=== PATIENT | female | born 1985 | race Caucasian/White ===

== ENCOUNTER 2018-05-04 05:40 | Inpatient (IN) | payer OTHER ==
[2018-05-04] MEDS ORDERED: IPRATROPIUM/ALBUTEROL 3 ML DEYVIAL ONE (05:55)
[2018-05-04] MEDS ORDERED: IPRATROPIUM/ALBUTEROL 3 ML DEYVIAL IH ONE ×2 (05:55→06:43)
[2018-05-04 06:16] LABS: PLATELET COUNT 386 10^3/uL (150-400)
[2018-05-04 06:29] LABS: INR 0.97 (0.83-1.16); PROTIME(PATIENT) 13.1 SEC (12.0-15.0)
[2018-05-04] MEDS ORDERED: IOHEXOL 350mgI/ML (OMNIPAQUE) 150 ML BTL IV ONE (06:57)
--- NOTE | 2018-05-04 07:17 | EDPHY ---
H & P Stated Complaint: breathing difficulty, cough - Personal History LMP (Females 10-55): 8-14 Days Ago Current Tetanus Diphtheria and Acellular Pertussis (TDAP): Yes - Medical/Surgical History Hx Asthma: No Hx Chronic Respiratory Disease: No Hx Diabetes: No Hx Cardiac Disease: No Hx Renal Disease: No Hx Cirrhosis: No Hx Alcoholism: No Hx HIV/AIDS: No Hx Splenectomy or Spleen Trauma: No - Social History Smoking Status: Never smoked Time Seen by Provider: 05/04/18 05:50 HPI/ROS: Chief Complaint: Difficulty breathing HPI: Healthy 32-year-old woman with no past medical history presenting with several days of worsening difficulty breathing. Patient has had viral URI type symptoms for the past week and over the last 3-4 days symptoms have been getting significantly worse. She is feeling like she cannot catch a full breath. No pain with inspiration. Some subjective fevers and chills at home. She has a dry nonproductive cough. No nausea or vomiting. No abdominal pain. No recent travel. No leg pain or swelling. No falls or injuries. No family history of coronary artery disease or thromboembolic disease. ROS: 10 systems were reviewed and were negative except those elements noted in the HPI. PMH: Denies Social History: No smoking, occasional alcohol, no recreational drug use Family History: non-contributory Physical Exam: Gen: Awake, Alert, appears in significant distress, hypoxemic, tachycardic HEENT: Nose: no rhinorrhea Eyes: PERRLA, EOMI Mouth: Moist mucosa Neck: Supple, no JVD Chest: nontender, decrease lung sounds diffusely, no focal rales or rhonchi Heart: S1, S2 normal, no murmur Abd: Soft, non-tender, no guarding Back: no CVA tenderness, no midline tenderness Ext: no edema, non-tender Skin: no rash Neuro: CN II-XII intact, Sensation grossly intact, Strength 5/5 in bilateral upper and lower extremities (Maynor Cowan) Constitutional: Initial Vital Signs Temperature (C) 37 C 05/04/18 05:43 Heart Rate 135 H 05/04/18 05:43 Blood Pressure 155/95 H 05/04/18 05:43 O2 Sat (%) 85 L 05/04/18 05:43 O2 Delivery Mode Room Air Allergies/Adverse Reactions: amoxicillin Allergy (Verified 05/04/18 08:19) Other-Enter Comments Home Medications: Medication Instructions Recorded Herbals/Supplements -Info Only 1 ea PO DAILY 05/04/18 Ibuprofen [Motrin (*)] 200 mg PO QID PRN 05/04/18 Norelgestromin/Ethin.estradiol 1 each TD AD 05/04/18 [Xulane Patch] Pseudoephedrine HCl [Sudafed] 30 mg PO BID PRN 05/04/18 Medical Decision Making - Diagnostics Imaging Results: Imaging Impressions Chest X-Ray 05/04/18 05:54 Impression: Mild cardiac silhouette enlargement with peribronchial thickening and bibasilar interstitial opacities suggests bronchitis or an atypical pneumonitis, although a component of low-grade CHF is not excluded. Clinical correlation and follow-up are suggested. Chest/Thorax CTA 05/04/18 06:53 Impression: 1. Suboptimal position of the pulmonary arterial system. No central pulmonary embolus. 2. Reticulation and groundglass opacities within the lung, likely representing an element of interstitial lung disease, such as pneumonitis, fibrosis, or pneumonia. Preliminary report provided by [facility] at 7:26 AM. Chest x-ray shows some mild diffuse bilateral lower patchy infiltrates per my interpretation. (Maynor Cowan) Imaging Impressions Chest X-Ray 05/04/18 05:54 Impression: Mild cardiac silhouette enlargement with peribronchial thickening and bibasilar interstitial opacities suggests bronchitis or an atypical pneumonitis, although a component of low-grade CHF is not excluded. Clinical correlation and follow-up are suggested. Chest/Thorax CTA 05/04/18 06:53 Impression: 1. Suboptimal position of the pulmonary arterial system. No central pulmonary embolus. 2. Reticulation and groundglass opacities within the lung, likely representing an element of interstitial lung disease, such as pneumonitis, fibrosis, or pneumonia. Preliminary report provided by [facility] at 7:[address] angiogram reviewed by me and discussed with Radiology shows no evidence for pulmonary embolus (Jesse Orozco) ED Course/Re-evaluation: 32-year-old woman with respiratory distress, hypoxemia and tachycardia. Will obtain laboratory evaluations, chest x-ray, DuoNeb treatment, reassess. Patient's white count is noted to be elevated to 20. She meets SIRS criteria. I have ordered the appropriate cultures and testing. Lactic acid has been ordered as well. D-dimer is elevated. Patient is improved after DuoNeb. CT scan of the chest has been ordered. Patient signed out to Dr. Orozco pending CT results of the CT scan, lactic acid and clinical re-evaluation. Patient is awaiting results from her influenza and respiratory pathogen panel. (Maynor Cowan) I saw the patient at 7:10 a.m.. She is stable. She speaks conversational but she appears somewhat breathless. She is just return from CT. We are awaiting results. Current heart rate about 110 appears to be sinus tach. 95% O2 saturation room air Patient and I have discussed imaging results, treatment plan including recommendation for admission. She expresses understanding and agreement I consulted discussed the case with hospitalist, who agrees to the admission and sees the patient in the emergency department (Jesse Orozco) Differential Diagnosis: This appears to be pneumonitis secondary to influenza. No evidence for pulmonary embolus (Jesse Orozco) - Data Points Laboratory Results: Laboratory Results 05/04/18 06:05 05/04/18 06:05 05/04/18 05/04/18 05/04/18 07:00 06:55 06:05 WBC RBC Hgb Hct MCV MCH MCHC RDW Plt Count MPV Neut % (Auto) Lymph % (Auto) Lamb % (Auto) Eos % (Auto) Baso % (Auto) Nucleat RBC Rel Count Absolute Neuts (auto) Absolute Lymphs (auto) Absolute Monos (auto) Absolute Eos (auto) Absolute Basos (auto) Absolute Nucleated RBC Immature Gran % Immature Gran # PT INR APTT D-Dimer VBG Lactic Acid 1.4 mmol/L mmol/L (0.7-2.1) Sodium Potassium Chloride Carbon Dioxide Anion Gap BUN Creatinine Estimated GFR Glucose Calcium Total Bilirubin Beta HCG, Qual NEGATIVE Urine Color PALE YELLOW Urine Appearance CLEAR Urine pH 6.0 (5.0-7.5) Ur Specific [place] 1.003 (1.002-1.030) Urine Protein NEGATIVE (NEGATIVE) Urine Ketones NEGATIVE (NEGATIVE) Urine Blood NEGATIVE (NEGATIVE) Urine Nitrate NEGATIVE (NEGATIVE) Urine Bilirubin NEGATIVE (NEGATIVE) Urine Urobilinogen NEGATIVE EU EU (0.2-1.0) Ur Leukocyte Esterase NEGATIVE (NEGATIVE) Urine Glucose NEGATIVE (NEGATIVE) Nasal Influenza A PCR Nasal Influenza B PCR 0205/04/18 05/04/18 06:05 06:05 06:05 WBC 20.81 10^3/uL H 10^3/uL (3.80-9.50) RBC 4.64 10^6/uL 10^6/uL (4.18-5.33) Hgb 14.0 g/dL g/dL (12.6-16.3) Hct 41.3 % % (38.0-47.0) MCV 89.0 fL fL (81.5-99.8) MCH 30.2 pg pg (27.9-34.1) MCHC 33.9 g/dL g/dL (32.4-36.7) RDW 12.9 % % (11.5-15.2) Plt Count 386 10^3/uL 10^3/uL (150-400) MPV 10.6 fL fL (8.7-11.7) Neut % (Auto) 89.3 % H % (39.3-74.2) Lymph % (Auto) 7.1 % L % (15.0-45.0) Lamb % (Auto) 2.6 % L % (4.5-13.0) Eos % (Auto) 0.1 % L % (0.6-7.6) Baso % (Auto) 0.4 % % (0.3-1.7) Nucleat RBC Rel Count 0.0 % % (0.0-0.2) Absolute Neuts (auto) 18.57 10^3/uL H 10^3/uL (1.70-6.50) Absolute Lymphs (auto) 1.47 10^3/uL 10^3/uL (1.00-3.00) Absolute Monos (auto) 0.55 10^3/uL 10^3/uL (0.30-0.80) Absolute Eos (auto) 0.03 10^3/uL 10^3/uL (0.03-0.40) Absolute Basos (auto) 0.08 10^3/uL 10^3/uL (0.02-0.10) Absolute Nucleated RBC 0.00 10^3/uL 10^3/uL (0-0.01) Immature Gran % 0.5 % % (0.0-1.1) Immature Gran # 0.11 10^3/uL H 10^3/uL (0.00-0.10) PT 13.1 SEC SEC (12.0-15.0) INR 0.97 (0.83-1.16) APTT 23.6 SEC SEC (23.0-38.0) D-Dimer 0.57 ug/mLFEU H ug/mLFEU (0.00-0.50) VBG Lactic Acid Sodium 138 mEq/L mEq/L (135-145) Potassium 4.5 mEq/L mEq/L (3.5-5.2) Chloride 108 mEq/L mEq/L (97-110) Carbon Dioxide 21 mEq/l L mEq/l (22-31) Anion Gap 9 mEq/L mEq/L (6-14) BUN 10 mg/dL mg/dL (7-23) Creatinine 0.9 mg/dL mg/dL (0.6-1.0) Estimated GFR > 60 Glucose 111 mg/dL H mg/dL (70-100) Calcium 9.6 mg/dL mg/dL (8.5-10.4) Total Bilirubin 0.4 mg/dL mg/dL (0.1-1.4) Beta HCG, Qual Urine Color Urine Appearance Urine pH Ur Specific [place] Urine Protein Urine Ketones Urine Blood Urine Nitrate Urine Bilirubin Urine Urobilinogen Ur Leukocyte Esterase Urine Glucose Nasal Influenza A PCR Nasal Influenza B PCR 05/04/18 06:05 WBC RBC Hgb Hct MCV MCH MCHC RDW Plt Count MPV Neut % (Auto) Lymph % (Auto) Lamb % (Auto) Eos % (Auto) Baso % (Auto) Nucleat RBC Rel Count Absolute Neuts (auto) Absolute Lymphs (auto) Absolute Monos (auto) Absolute Eos (auto) Absolute Basos (auto) Absolute Nucleated RBC Immature Gran % Immature Gran # PT INR APTT D-Dimer VBG Lactic Acid Sodium Potassium Chloride Carbon Dioxide Anion Gap BUN Creatinine Estimated GFR Glucose Calcium Total Bilirubin Beta HCG, Qual Urine Color Urine Appearance Urine pH Ur Specific [place] Urine Protein Urine Ketones Urine Blood Urine Nitrate Urine Bilirubin Urine Urobilinogen Ur Leukocyte Esterase Urine Glucose Nasal Influenza A PCR Cancelled Nasal Influenza B PCR Cancelled Microbiology Results: MICROBIOLOGY 05/04/18 06:00 Nasal, Sinus - Swab Respiratory Panel (PCR) - Final No Organism Detected By Pcr Medications Given: Discontinued Medications Albuterol/Ipratropium (Duoneb) 3 ml IH EDNOW ONE Stop: 05/04/18 05:56 Last Admin: 05/04/18 05:57 Dose: 3 ml Albuterol/Ipratropium (Duoneb) 3 ml IH EDNOW ONE Stop: 05/04/18 06:44 Last Admin: 05/04/18 06:43 Dose: 3 ml Sodium Chloride (Ns) 1,000 mls @ 0 mls/hr IV EDNOW ONE; Wide Open PRN Reason: Protocol Stop: 05/04/18 07:21 Last Admin: 05/04/18 07:26 Dose: 1,000 mls Departure - Departure Disposition: [facility] Inpatient Acute Clinical Impression: Pneumonia Qualifiers: Pneumonia type: due to unspecified organism Laterality: bilateral Lung location : lower lobe of lung Qualified Code(s): J18.1 - Lobar pneumonia, unspecified organism Condition: Fair
[2018-05-04] MEDS ORDERED: NS 1,000 ML IV ONE (07:20)
[2018-05-04] MEDS ORDERED: ZOLPIDEM TARTRATE 5 MG TAB PO PRN (08:56)
[2018-05-04] MEDS ORDERED: ONDANSETRON 4 MG/2 ML VIAL IVP PRN (08:56)
[2018-05-04] MEDS ORDERED: NS 500 ML IV ONE (08:56)
[2018-05-04] MEDS ORDERED: ACETAMINOPHEN 325 MG TAB PO PRN (08:56)
[2018-05-04] MEDS ORDERED: NORELGESTROMIN TD SCH (09:00)
[2018-05-04] MEDS ORDERED: ETHIN ESTRADIOL TD SCH (09:00)
--- NOTE | 2018-05-04 09:07 | PDGENHP ---
History and Physical History and Physical: CC: Cough and shortness of breath HISTORY: 1 week of cough and congestion has been present and the patient now developing worsening shortness of breath for the last 3-4 days. There have been chills and rigors at home. The cough is nonproductive with no hematemesis. She has not have any previous history of lung disease or respiratory illness of concern. NO chest pain. No nausea or emesis, mild headache Her roommate had a cold recently. 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 I have reviewed the list and ordered appropriate medicines. PHYSICAL EXAMINATION: Vital Signs: Initial pulse 135, initial respiratory rate 28, 85% oxygen saturation initially on room air, highest temperature in the ER so far 37.4 Avionics Engineer: Sinus Examination: General: alert, oriented, good mentation, relaxed Skin: warm, dry, good color, no rash HEENT: normal Neck: no mass or jvd Resps: relaxed Lungs: clear breath sounds Heart: regular, no murmur Abdomen: soft, nondistended, nontender, +BS, no mass Upper Extremities: normal Lower Extremities: no edema, warm No Bleeding or bruising Neurologic: normal speech/language, normal rounder hand, no focal weakness IV site: looks normal LABORATORY DATA: White blood cell count elevated 20,000 with predominance in neutrophils Normal platelets and hemoglobin Normal coagulation studies with exception of D-dimer elevated 0.5 RADIOLOGY STUDIES: I reviewed images from CT scan of chest and x-ray both done in the ER this morning. The patient has left lower lobe pneumonia without effusion. No pulmonary emboli or visible although the contrast has passed more pulmonary venous and systemic arterial system and is suboptimal in the pulmonary arteries. ASSESSMENT: * Acute sepsis tachycardia tachypnea hypoxemia fever high white blood cell count and pneumonia * Community-acquired pneumonia * Hypoxemic respiratory failure, acute * CO2 slightly low at 21 but normal anion gap, otherwise unremarkable Chem panel * Negative test * Unremarkable UA PLANS: * Ongoing fluid resuscitation follow vital signs and other sepsis signs very closely * I have ordered antibiotics to start now in the ER which have not previous been given * Only a single blood culture has been obtained apparently so far; I have asked ER nurse to get another blood culture now before abx * otherwise symptomatic therapies I have reviewed the patient's case in detail with Dr. Orozco I have reviewed the patient's past medical records as part of this assessment, including outpatient clinic records including laboratory data
[2018-05-04] MEDS ORDERED: levOFLOXACIN 750 MG/DEXTROSE/150 ML BAG IV ONE (09:25)
[2018-05-04] MEDS: ENOXAPARIN 40 MG/0.4 ML SYR SC SCH (10:22)
--- NOTE | 2018-05-04 13:40 | PDMN ---
Medical Necessity Medical necessity: [facility] M160 Sepsis, A-3 days: 32 yo w/ URI s/sx in acute sepsis 2nd CAP, meets IP status med nec for ongoing care with hemodynamic instability ( tachy 130s), tachynpnea (RR 28) and hypoxemia (85% ra) requiring O2. IVF and IV antibx started. Anticipate>2MN for ongoing monitoring and tx of the above.
[2018-05-04] MEDS: NS 1,000 ML IV SCH ×2 (14:35→20:54)
[2018-05-04] MEDS: MELATONIN 3 MG TAB PO SCH (20:47)
[2018-05-05 07:21] LABS: PLATELET COUNT 352 10^3/uL (150-400)
[2018-05-05] MEDS: ENOXAPARIN 40 MG/0.4 ML SYR SC SCH (08:41)
--- NOTE | 2018-05-05 09:46 | ASMTCMCOM ---
CM Note CM Note Notes: Patient admitted for cough and SOB greater than one week duration. She's being treated for community acquired PNA. She is normally independent. 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 Lives w roomate. No d/c needs anticipated. Date Signed: 05/05/2018 09:46 AM Electronically Signed By:Erica Agrawal RN
[2018-05-05] MEDS ORDERED: methylPREDNISolone SOD SUCC 125 MG/2 ML VIAL IVP ONE (10:20)
[2018-05-05] MEDS: ALBUTEROL 3 ML DEYVIAL IH SCH ×4 (10:43→20:27)
[2018-05-05] MEDS ORDERED: LORazepam 0.5 MG TAB PO ONE (13:34)
--- NOTE | 2018-05-05 13:40 | HOSPPROG ---
Hospitalist Progress Note Assessment/Plan: 32 yo female admitted with CAP Called to bedside urgently as the pt's breathing rate in high 40's CXR does not show volume overload. Does show pneumonia Resp panel negative no hx of Asthma/COPD BNP not high CTA on admission showed no P.E #Acute Hypoxic Respiratory Failure #Tachypnea #CAP #Reactive Airway disease with exacerbation #Anxiety disorder, reports recent evaluation for this by her PCP during which she filled out a form and need f/u for results #Leukocytosis, resolving Plan: Stat CXR was ordered and read Stat SoluMedrol given. Will schedule Schedule Nebs, first now cont Levaquin Stop IVF, voiding well. no signs of dehydration at this time If persists, will obtain ABG Doubt P.E. with negative imaging on admission, exam consistent with obstruct vs reactive lung disease, and has been on prophylactic dose of Lovenox total critical care time in the mgmt of this pt with acute resp failure is 40 minutes Subjective: feels sob. denies cp. increased work of breathing. Objective: Vital Signs Temp Pulse Resp BP Pulse Ox 36.7 C 101 H 40 H 127/85 H 94 05/05/18 12:00 05/05/18 12:00 05/05/18 12:00 05/05/18 12:00 05/05/18 12:00 Laboratory Results 05/05/18 06:25 05/05/18 06:25 05/04/18 05/05/18 05/06/18 05:59 05:59 05:59 Intake Total 2300 Output Total 900 Balance 2300 -900 PT 13.1 SEC (12.0-15.0) 05/04/18 06:05 INR 0.97 (0.83-1.16) 05/04/18 06:05 - Physical Exam Constitutional: no apparent distress Eyes: PERRL, EOMI Ears, Nose, Mouth, Throat: moist mucous membranes Cardiovascular: regular rate and rhythym, tachycardia Respiratory: reduced air movement, expiratory wheeze, respiratory distress ( tachypnea) Gastrointestinal: normoactive bowel sounds Skin: warm Neurologic: AAOx3 Psychiatric: interacting appropriately, not anxious, not encephalopathic Lymph, Heme, Immunologic: No petechiae ICD10 Worksheet Patient Problems: Problems Problem Status Onset Pneumonia Acute
[2018-05-05] MEDS: methylPREDNISolone SOD SUCC 125 MG/2 ML VIAL IVP SCH ×2 (14:21→22:11)
[2018-05-05] MEDS: MELATONIN 3 MG TAB PO SCH (23:35)
[2018-05-06] MEDS: methylPREDNISolone SOD SUCC 125 MG/2 ML VIAL IVP SCH ×2 (05:24→14:05)
[2018-05-06] MEDS: ALBUTEROL 3 ML DEYVIAL IH SCH ×4 (05:51→19:57)
[2018-05-06] MEDS: ENOXAPARIN 40 MG/0.4 ML SYR SC SCH (09:18)
[2018-05-06] MEDS ORDERED: BENZONATATE 100 MG CAP PO PRN (15:28)
--- NOTE | 2018-05-06 15:33 | HOSPPROG ---
Hospitalist Progress Note Assessment/Plan: 32 yo female admitted with CAP CXR does not show volume overload. Does show pneumonia Resp panel negative no hx of Asthma/COPD BNP not high CTA on admission showed no P.E #Acute Hypoxic Respiratory Failure #Tachypnea #CAP #Reactive Airway disease with exacerbation #Anxiety disorder, reports recent evaluation for this by her PCP during which she filled out a form and need f/u for results #Leukocytosis, resolving Plan: Much improved today stop IV steroids, start Prednisone cont nebs cont Levaquin, change to PO can hopefully wean off O2 tomorrow and discharge d/w pt and parents Subjective: feels better. Still on 3 liters. no further resp distress Objective: Vital Signs Temp Pulse Resp BP Pulse Ox 37.1 C 114 H 20 130/78 H 93 05/06/18 11:54 05/06/18 11:54 05/06/18 11:54 05/06/18 11:54 05/06/18 11:54 Laboratory Results 05/05/18 06:25 05/05/18 06:25 05/05/18 05/06/18 05/07/18 05:59 05:59 05:59 Intake Total 2300 2850 500 Output Total 2152 800 Balance 2300 698 -300 PT 13.1 SEC (12.0-15.0) 05/04/18 06:05 INR 0.97 (0.83-1.16) 05/04/18 06:05 - Physical Exam Constitutional: no apparent distress Eyes: PERRL, EOMI Ears, Nose, Mouth, Throat: moist mucous membranes, hearing normal Cardiovascular: regular rate and rhythym, No edema Respiratory: no respiratory distress, no rales or rhonchi, reduced air movement , expiratory wheeze Gastrointestinal: normoactive bowel sounds, soft, non-tender abdomen Skin: warm Neurologic: AAOx3 Psychiatric: interacting appropriately, not anxious, not encephalopathic Lymph, Heme, Immunologic: No petechiae ICD10 Worksheet Patient Problems: Problems Problem Status Onset Pneumonia Acute
[2018-05-06] MEDS: guaiFENesin 600 MG TAB.ER PO SCH (20:26)
[2018-05-06] MEDS: MELATONIN 3 MG TAB PO SCH (22:39)
[2018-05-07] MEDS: ALBUTEROL 3 ML DEYVIAL IH SCH ×2 (06:04→10:45)
[2018-05-07] MEDS: ENOXAPARIN 40 MG/0.4 ML SYR SC SCH (08:36)
[2018-05-07] MEDS: guaiFENesin 600 MG TAB.ER PO SCH (08:36)
[2018-05-07] MEDS ORDERED: predniSONE 20 MG TAB PO SCH (09:00)
--- NOTE | 2018-05-07 10:04 | PDDCSUM ---
Discharge Summary Discharge Summary: Dates of service 05/04-05/07/2018 Consultations: Procedures: Hospital course by problem: 32 yo female admitted with CAP # CAP: significantly improved on levofloxacin, will dc on oral to complete 7 day course, cultures and resp PCR negative # acute hypoxic respiratory failure: with CTA and CXR c/w pna without other etiology, no PE. Has been doing well on RA for last 24 hours. # RAD with acute exacerbation: without prior hx of asthma or COPD and presumably post viral RAD, improved with nebs. Discharged home with albuterol inhaler, completed 3 days of steroids and will dc given resolution of wheeze # leukocytosis: due to infection as above and improved # anxiety: being worked up by PCP DC home f/u with PCP Items fo follow up: consider OP pulmonary function testing once recovered from this illness > 35 min spent in dc more than half in coordination of care and counseling regarding post discharge plans
[2018-05-07 12:13] VITALS: BP 129/77
--- NOTE | 2018-05-07 13:52 | ASMTLACE ---
ARETHAE Length of stay for Answers: 4-6 days current admission Acuity / Level of Answers: Yes Care: Did the patient have an inpatient admission? # of Emergency department Answers: 1-2 visits in the last 6 months Score: 8 Date Signed: 05/07/2018 01:52 PM Electronically Signed By:AMNEA Burns
--- NOTE | 2018-05-07 13:53 | ASMTCMCOM ---
CM Note CM Note Notes: Pt medically stable for d/c, no CM d/c needs identified. Date Signed: 05/07/2018 01:52 PM Electronically Signed By:AMENA Burns
--- NOTE | 2018-05-11 11:12 | PQFORM ---
PHYSICIAN QUERY FORM Needs Your Response This query form is being sent to you to assure this patient record is coded properly. Please respond to the question below: JUDO INSTRUCTOR QUESTION: Dr Lopez Sepsis was mentioned in this patients chart but was not listed on the discharge summary. I do not see where it was 'ruled out'. Please clarify if this patient had Sepsis. x __ Yes my note should have said sepsis resolved, I can edit it __ No __ Other (Please Specify ) __ Undetermined Thank You Shanika TRUJILLO Mud Cleaner Operator INSTRUCTIONS FOR RESPONSE: Answer question by clicking on the "Edit Document" button. Move cursor to area below the stars. When complete, hit "Save." Click on the "Sign" button, then click "Sign" again. Type in your PIN and hit "Enter." MTDD
== END 2018-05-07 12:37 | disposition home or self-care (01) | DRG 871 ==
LOC: F1N 13:33
PROVIDERS: ADMIT Internal Medicine; ATTEND Internal Medicine
DX: A41.9 Sepsis, unspecified organism (principal); J18.9 Pneumonia, unspecified organism; J96.21 Acute and chronic respiratory failure with hypoxia; J45.901 Unspecified asthma with (acute) exacerbation; D72.829 Elevated white blood cell count, unspecified
CPT/HCPCS: 96365; 96366; J1650; J1956; J2930; J7512; J7613; Q9967

== ENCOUNTER → 2018-05-13 | Outpatient (CLI) | payer OTHER | LOC: FIMAGING 10:39 ==

== ENCOUNTER 2018-05-14 11:26 | Observation (INO) | payer OTHER ==
--- NOTE | 2018-05-14 11:39 | EDPHY ---
H & P Stated Complaint: pna/SOB/cough/tachy Time Seen by Provider: 05/14/18 11:38 - Personal History LMP (Females 10-55): 15-21 Days Ago Current Tetanus/Diphtheria Vaccine: Yes - Medical/Surgical History Hx Asthma: No Hx Chronic Respiratory Disease: No Hx Diabetes: No Hx Cardiac Disease: No Hx Renal Disease: No Hx Cirrhosis: No Hx Alcoholism: No Hx HIV/AIDS: No Hx Splenectomy or Spleen Trauma: No Other PMH: Denies. [employer] teeth removal - Social History Smoking Status: Never smoked Constitutional: Initial Vital Signs Temperature (C) 37.6 C 05/14/18 11:29 Heart Rate 131 H 05/14/18 11:29 Respiratory Rate 29 H 05/14/18 11:29 Blood Pressure 144/96 H 05/14/18 11:29 O2 Sat (%) 93 05/14/18 11:29 O2 Delivery Mode Room Air Allergies/Adverse Reactions: amoxicillin Allergy (Verified 05/14/18 11:32) Other-Enter Comments Home Medications: Medication Instructions Recorded Herbals/Supplements -Info Only 1 ea PO DAILY 05/04/18 Ibuprofen [Motrin (*)] 200 mg PO QID PRN 05/04/18 Norelgestromin/Ethin.estradiol 1 each TD AD 05/04/18 [Xulane Patch] Pseudoephedrine HCl [Sudafed 30mg 30 mg PO BID PRN 05/04/18 (OTC)] Albuterol [Ventolin Hfa Inhaler] 200 puffs IH Q2H PRN #1 mdi 05/07/18 Benzonatate [Tessalon Pearles] 100 mg PO TID PRN #21 cap 05/07/18 guaiFENesin [Mucinex 600 MG (*)] 1,200 mg PO BID tab.er 05/07/18 levOFLOXACIN [levAQUIN (*)] 750 mg PO DAILY AT 10AM #5 tab 05/07/18 Medical Decision Making ED Course/Re-evaluation: CHIEF COMPLAINT: Worsening shortness of breath HISTORY OF PRESENT ILLNESS: The patient is a 32 y/o female complaining of worsening shortness of breath after being diagnosed with pneumonia. On 05/04 the patient was seen in this emergency department for similar symptoms and was admitted for pneumonia. During that admission she had a CT after having an elevated d-dimer which did not reveal evidence of a central PE. She did not have a flu swab performed. On 05/07 she was discharged home and started to feel better. 4 days ago her shortness of breath returned so she saw her PCP yesterday. During that visit she had a chest x-ray which revealed an improving pneumonia. She was prescribed a nebulizer and steroid which have not alleviated her symptoms. As her symptoms have still not improved she was advised to present to the emergency department by her PCP. Currently taking a deep breath causes coughing spasms. She denies history of underlying respiratory disease. No fever, headache, body aches, lightheadedness, chest pain, heart palpitations, abdominal pain, urinary or bowel complaints, numbness, paresthesias. REVIEW OF SYSTEMS: A comprehensive 10 system review of systems is otherwise negative aside from elements mentioned in the history of present illness and medical decision making. PHYSICAL EXAM: HR, BP, O2 Sat, RR. Temp noted General Appearance: Alert, well hydrated, appropriate, and non-toxic appearing. Head: Atraumatic without scalp tenderness or obvious injury Eyes: Pupils equal, round, reactive to light and accommodation, EOMI, no trauma , no injection. Ears: Clear bilaterally, no perforation, normal landmarks Nose: Atraumatic, no rhinorrhea, clear. Throat: There is no erythema or exudates, no lesions, normal tonsils, mucus membranes moist. Neck: Supple, 2+ carotid upstroke, nontender, no lymphadenopathy. Respiratory: Not in respiratory distress. Tachypneic and taking shallow breaths. No retractions, no distress, no wheezes, and no accessory muscle use. Lungs are clear to auscultation bilaterally. Cardiovascular: Regular rate and rhythm, no murmurs, rubs, or gallops. Bilateral carotid, radial, dorsalis pedis, and posterior tibial pulses intact. Good capillary refill all extremities. Gastrointestinal: Abdomen is soft, nontender, non-distended, no masses, no rebound, no guarding, no peritoneal signs. Musculoskeletal: Normal active ROM of all extremities, atraumatic. Neurological: Alert, appropriate, and interactive. The patient has normal DTRs and non-focal cranial nerves, motor, sensory, and cerebellar exam. Skin: No rashes, good turgor, no nodules on palpation. Past medical history: Recent pneumonia Past surgical history: Denies Family history: Denies Social history: Lives in [place], single, employed as a nurse at [employer] DIAGNOSTICS/PROCEDURES/CRITICAL CARE TIME: Not indicated. DIFFERENTIAL DIAGNOSIS: The differential diagnosis for the patient's shortness of breath and hypoxemia included but was not limited to pneumonia, myocardial infarction, acute mountain sickness, high altitude pulmonary edema, congestive heart failure, and pulmonary embolus. MEDICAL DECISION MAKING: The patient is a 32 y/o female presenting with worsening shortness of breath after being diagnosed with pneumonia. On exam she is tachycardic and tachypneic , but she does not appear systemically ill and she is not respiratory distress. I do not believe this patient needs further imaging as a chest x-ray yesterday revealed improving pneumonia. However, this patient will need to be admitted as antibiotics, an inhaler, and steroids have not improved her symptoms. Patient is comfortable with plan for admission. Labs ordered; 500mL IV NS, 2 Percocet tabs, and DuoNeb administered. 1150: I consulted with the hospitalist service, Dr. Zamorano accepts admission of this patient. - Data Points Laboratory Results: 05/14/18 11:45 Nasal Influenza A PCR Pending Nasal Influenza B PCR Pending RSV (PCR) Pending Medications Given: Sodium Chloride (Ns) 500 mls @ 1,000 mls/hr IV EDNOW ONE PRN Reason: Protocol Stop: 05/14/18 12:17 Last Admin: 05/14/18 11:58 Dose: 500 mls Discontinued Medications Albuterol/Ipratropium (Duoneb) 3 ml IH EDNOW ONE Stop: 05/14/18 11:44 Last Admin: 05/14/18 11:50 Dose: 3 ml Oxycodone/Acetaminophen (Percocet 5/325) 2 tab PO EDNOW ONE Stop: 05/14/18 11:54 Last Admin: 05/14/18 11:58 Dose: 2 tab Departure - Departure Disposition: [facility] Inpatient Acute Clinical Impression: Pneumonia Qualifiers: Pneumonia type: due to unspecified organism Laterality: right Lung location: lower lobe of lung Qualified Code(s): J18.1 - Lobar pneumonia, unspecified organism Dyspnea Qualifiers: Dyspnea type: unspecified Qualified Code(s): R06.00 - Dyspnea, unspecified Condition: Fair Referrals: Rosamaria Orta MD [Primary Care Provider] - As per Instructions Report Scribed for: Guille Ortiz Report Scribed by: Laquita Camejo Date of Report: 05/14/18 Time of Report: 12:08
[2018-05-14] MEDS ORDERED: IPRATROPIUM/ALBUTEROL 3 ML DEYVIAL IH ONE (11:43)
[2018-05-14] MEDS ORDERED: NS 500 ML IV ONE (11:48)
[2018-05-14] MEDS ORDERED: OXYCODONE/APAP 5/325 TAB PO ONE (11:53)
[2018-05-14 12:32] LABS: PLATELET COUNT 401 10^3/uL (150-400)
[2018-05-14] MEDS ORDERED: ONDANSETRON DISINTEGRATING 4 MG TAB PO PRN (12:50)
[2018-05-14] MEDS ORDERED: ACETAMINOPHEN 325 MG TAB PO PRN (12:50)
[2018-05-14] MEDS ORDERED: ONDANSETRON 4 MG/2 ML VIAL IVP PRN (12:50)
[2018-05-14] MEDS ORDERED: ALBUTEROL 3 ML DEYVIAL IH PRN (12:50)
[2018-05-14] MEDS ORDERED: PSEUDOEPHEDRINE HCL 30 MG TAB PO PRN (12:51)
[2018-05-14] MEDS ORDERED: IBUPROFEN 200 MG TAB PO PRN (12:51)
[2018-05-14] MEDS ORDERED: BENZONATATE 100 MG CAP PO PRN (12:51)
[2018-05-14] MEDS ORDERED: ETHIN ESTRADIOL TD SCH (13:00)
[2018-05-14] MEDS ORDERED: NORELGESTROMIN TD SCH (13:00)
--- NOTE | 2018-05-14 14:16 | PDDCSUM ---
Discharge Summary Discharge Summary: error
--- NOTE | 2018-05-14 14:18 | PDGENHP ---
History and Physical - Chief Complaint sob - History of Present Illness The patient is a 32 y/o female complaining of worsening shortness of breath after being diagnosed with pneumonia. She was admitted for pneumonia on 05/04. During that admission she had a CT after having an elevated d-dimer which did not reveal evidence of a central PE. On 05/07 she was discharged home. Steroids were not continued on discharge. She initially felt good but then started having SOB and she presented to her PCP yesterday and was started on Prednisone and provided with a nebulizer. She felt better last night, but this morning had a difficult time breathing and presented to the hospital She has been afebrile. she has completed her course of Levaquin. She had a dose of Pred 40 yesterday and one today prior to arrival to the ER. No fever, headache, body aches, lightheadedness, chest pain, heart palpitations , abdominal pain, urinary or bowel complaints, numbness, paresthesias. Past medical history: Recent pneumonia. No astham Past surgical history: Denies Family history: non contributory Social history: Lives in [place], single, employed as a nurse at [employer] CXR performed yesterday shows improving bilateral pneumonia History Information - Allergies/Home Medication List Allergies/Adverse Reactions: amoxicillin Allergy (Verified 05/14/18 11:32) Other-Enter Comments Home Medications: Herbals/Supplements -Info Only 1 ea PO DAILY 05/04/18 [Last Taken 05/14/18] Ibuprofen [Motrin (*)] 200 mg PO QID PRN 05/04/18 [Last Taken 05/13/18] Norelgestromin/Ethin.estradiol [Xulane Patch] 1 each TD AD 05/04/18 [Last Taken Unknown] Pseudoephedrine HCl [Sudafed 30mg (OTC)] 30 mg PO BID PRN 05/04/18 [Last Taken 1 Week Ago ~05/07/18] Albuterol [Proventil Inhaler HFA (*)] 1 - 2 puffs IH Q2H PRN 05/14/18 [Last Taken 05/14/18 09:00] Ipratropium/Albuterol [Duoneb (*)] 3 ml IH Q6H PRN 05/14/18 [Last Taken 05/13/18 ] predniSONE 40 mg PO DAILY 05/14/18 [Last Taken 05/14/18 09:00] I have personally reviewed and updated: medical history, social history - Social History Smoking Status: Never smoked Review of Systems Review of Systems: ROS: 10pt was reviewed & negative except for what was stated in HPI & below Physical Exam Physical Exam: Temp Pulse Resp BP Pulse Ox 37.0 C 112 H 22 H 138/84 H 97 05/14/18 12:34 05/14/18 12:34 05/14/18 12:34 05/14/18 12:34 05/14/18 12:34 Constitutional: no apparent distress Eyes: PERRL Ears, Nose, Mouth, Throat: moist mucous membranes, hearing normal Cardiovascular: regular rate and rhythym, No edema Respiratory: reduced air movement, expiratory wheeze Gastrointestinal: normoactive bowel sounds Skin: warm Neurologic: AAOx3 Psychiatric: interacting appropriately, not anxious, not encephalopathic Lymph, Heme, Immunologic: No petechiae Lab Data & Imaging Review 05/14/18 12:20 05/14/18 12:20 WBC 31.92 10^3/uL (3.80-9.50) H 05/14/18 12:20 RBC 4.61 10^6/uL (4.18-5.33) 05/14/18 12:20 Hgb 14.2 g/dL (12.6-16.3) 05/14/18 12:20 Hct 42.2 % (38.0-47.0) 05/14/18 12:20 MCV 91.5 fL (81.5-99.8) 05/14/18 12:20 MCH 30.8 pg (27.9-34.1) 05/14/18 12:20 MCHC 33.6 g/dL (32.4-36.7) 05/14/18 12:20 RDW 13.1 % (11.5-15.2) 05/14/18 12:20 Plt Count 401 10^3/uL (150-400) H 05/14/18 12:20 MPV 10.4 fL (8.7-11.7) 05/14/18 12:20 Neut % (Auto) Not Reported 05/14/18 12:20 Lymph % (Auto) Not Reported 05/14/18 12:20 [place] % (Auto) Not Reported 05/14/18 12:20 Eos % (Auto) Not Reported 05/14/18 12:20 Baso % (Auto) Not Reported 05/14/18 12:20 Nucleat RBC Rel Count Not Reported 05/14/18 12:20 Absolute Neuts (auto) Not Reported 05/14/18 12:20 Absolute Lymphs (auto) Not Reported 05/14/18 12:20 Absolute Monos (auto) Not Reported 05/14/18 12:20 Absolute Eos (auto) Not Reported 05/14/18 12:20 Absolute Basos (auto) Not Reported 05/14/18 12:20 Absolute Nucleated RBC Not Reported 05/14/18 12:20 Immature Gran % Not Reported 05/14/18 12:20 Seg Neutrophils % 96.0 % 05/14/18 12:20 Band Neutrophils % 4.0 % 05/14/18 12:20 Lymphocytes % 0.0 % 05/14/18 12:20 Monocytes % 0.0 % 05/14/18 12:20 Eosinophils % 0.0 % 05/14/18 12:20 Basophils % 0.0 % 05/14/18 12:20 Metamyelocytes % 0.0 % 05/14/18 12:20 Myelocytes % 0.0 % 05/14/18 12:20 Promyelocytes % 0.0 % 05/14/18 12:20 Blast Cells % 0.0 % 05/14/18 12:20 Immature Gran # Not Reported 05/14/18 12:20 Absolute Seg Neuts 30.64 10^3/uL (1.70-6.50) H 05/14/18 12:20 Absolute Band Neuts 1.28 10^3/uL (0.00-0.70) H 05/14/18 12:20 Absolute Lymphocytes 0.00 10^3/uL (1.00-3.00) L 05/14/18 12:20 Absolute Monocytes 0.00 10^3/uL (0.30-0.80) L 05/14/18 12:20 Absolute Eosinophils 0.00 10^3/uL (0.03-0.40) L 05/14/18 12:20 Absolute Basophils 0.00 10^3/uL (0.02-0.10) L 05/14/18 12:20 Absolute Metamyelocyte 0.00 10^3/mL (0.00-0.00) 05/14/18 12:20 Absolute Myelocytes 0.00 10^3/mL (0.00-0.00) 05/14/18 12:20 Absolute Promyelocytes 0.00 10^3/uL (0.00-0.00) 05/14/18 12:20 Absolute Plasma Cells 0.00 10^3/uL (0.00-0.00) 05/14/18 12:20 Nucleated RBCs 0 /100 WBC (0-0) 05/14/18 12:20 Absolute Blast Cells 0.00 10^3/uL (0.00-0.00) 05/14/18 12:20 Plasma Cells % 0.0 % 05/14/18 12:20 Platelet Estimate INCREASED (ADEQ) H 05/14/18 12:20 Elliptocytes 1+ H 05/14/18 12:20 Sodium 137 mEq/L (135-145) 05/14/18 12:20 Potassium 4.4 mEq/L (3.5-5.2) 05/14/18 12:20 Chloride 107 mEq/L (97-110) 05/14/18 12:20 Carbon Dioxide 20 mEq/l (22-31) L 05/14/18 12:20 Anion Gap 10 mEq/L (6-14) 05/14/18 12:20 BUN 12 mg/dL (7-23) 05/14/18 12:20 Creatinine 0.9 mg/dL (0.6-1.0) 05/14/18 12:20 Estimated GFR > 60 05/14/18 12:20 Glucose 111 mg/dL (70-100) H 05/14/18 12:20 Calcium 9.7 mg/dL (8.5-10.4) 05/14/18 12:20 Nasal Influenza A PCR NEGATIVE FOR FLU A (NEGATIVE) 05/14/18 11:45 Nasal Influenza B PCR NEGATIVE FOR FLU B (NEGATIVE) 05/14/18 11:45 RSV (PCR) NEGATIVE FOR RSV (NEGATIVE) 05/14/18 11:45 Assessment & Plan Assessment: 32 yo female admitted with recent admission with CAP and bronchitis returns with dyspnea. #Acute bronchitis vs reactive airway disease exacerbation #Leukocytosis, denies fever, etiology unclear #Tachycardia due to difficulty with breathing #recent CAP, CXR shows resolving #Anxiety disorder, reports recent evaluation for this by her PCP during which she filled out a form and need f/u for results Plan: Observation I will provide additional Prednisone today. Steroids should have likely been continued with a taper on d/c. will taper this time scheduled and prn neb check pc no abx for now home meds as appropriate
--- NOTE | 2018-05-14 14:37 | ASMTCMCOM ---
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 She is expected to d/c without CM needs; CM will follow for changes. D/C Plan: Anticipate independent. Date Signed: 05/14/2018 02:37 PM Electronically Signed By:Maribell Paulson
[2018-05-14] MEDS: predniSONE 20 MG TAB PO SCH (16:07)
[2018-05-14] MEDS: IPRATROPIUM/ALBUTEROL 3 ML DEYVIAL IH SCH ×2 (16:17→21:02)
[2018-05-15] MEDS: IPRATROPIUM/ALBUTEROL 3 ML DEYVIAL IH SCH ×2 (05:32→11:06)
[2018-05-15 07:26] VITALS: BP 125/70
[2018-05-15] MEDS: predniSONE 20 MG TAB PO SCH (08:42)
[2018-05-15 09:55] LABS: PLATELET COUNT 406 10^3/uL (150-400)
--- NOTE | 2018-05-15 10:54 | PDDCSUM ---
Discharge Summary Discharge Summary: 32 yo female admitted with recent admission with CAP and bronchitis returns with dyspnea. She was on steroids during her previous admission and these were discontinued on discharge. She completed her abx regimen prior to this admission. She was admitted. She was found to have increased work of breathing and tachycardia. Additional steroids were provided. She is now better. She has been started on a steroid taper. She will f/u with her PCP next week. Leukocytosis was noted on admission (32). She was afebrile with no hx of fever. CXR showed improving infiltrates (DONE 05/13). PC was obtained and this was essentially unremarkable. No abx were restarted. WBC decreased to 20 on discharge and she remained afebrile. On follow up would obtain a CBC and would schedule a f/u CXR for end of next week (May 19 or ) #Acute bronchitis vs reactive airway disease exacerbation #Leukocytosis, denies fever, etiology unclear #Tachycardia due to difficulty with breathing #recent CAP, CXR shows resolving #Anxiety disorder, reports recent evaluation for this by her PCP during which she filled out a form and need f/u for results Exam: NAD AAOX3 RRR SOME RHONCHI, NORMAL WORK OF BREATHING S/NT/ND MEDS: SEE MED REC TOTAL TIME SPENT ON D/C IS 35 MINS
--- NOTE | 2018-05-15 10:59 | ASMTLACE ---
LACE Length of stay for Answers: Less than 1 day current admission Date Signed: 05/15/2018 10:58 AM Electronically Signed By:Katherine Abernathy RN
--- NOTE | 2018-05-15 11:01 | ASMTDCNOTE ---
Case Management Discharge Discharge Order Complete? Answers: Yes Patient to Obtain Answers: Independently Medications Transportation Arranged Answers: Family/Friends Family Notified Answers: Yes Discharge Comments Notes: 32 Year old female medically cleared to discharge to home. No current needs. CM available should needs arise. Plan: DC to home independently. Date Signed: 05/15/2018 11:00 AM Electronically Signed By:Katherine Abernathy RN
== END 2018-05-15 11:53 | disposition home or self-care (01) ==
LOC: F1N 12:29
PROVIDERS: ADMIT Family Medicine; ATTEND Family Medicine
DX: R06.00 Dyspnea, unspecified (principal); J18.0 Bronchopneumonia, unspecified organism; F41.9 Anxiety disorder, unspecified
CPT/HCPCS: G0378 ×2; J7512

== ENCOUNTER → 2018-05-19 | Outpatient (CLI) | payer OTHER | LOC: FIMAGING 14:54 | PROVIDERS: ATTEND Family Medicine | DX: J18.9 Pneumonia, unspecified organism (principal) ==

== ENCOUNTER → 2018-05-20 | Outpatient (CLI) | payer OTHER ==
[~2018-05-20] MED LIST: IOPAMIDOL (ISOVUE-300) 100 ML BTL ONE
== END ==
LOC: FIMAGING 12:36
PROVIDERS: ATTEND Family Medicine
DX: J84.10 Pulmonary fibrosis, unspecified (principal); R91.8 Other nonspecific abnormal finding of lung field
CPT/HCPCS: Q9967

== ENCOUNTER → 2018-07-18 | Outpatient (CLI) | payer OTHER | LOC: FIMAGING 10:59 | PROVIDERS: ATTEND Internal Medicine Pulmonary Disease | DX: R05 Cough (principal); R06.09 Other forms of dyspnea; J18.9 Pneumonia, unspecified organism ==